=== PATIENT | female | born 1955 | race African-American/Black ===

== ENCOUNTER 2024-08-30 12:21 | Emergency (ER) | payer OTHER ==
[~2024-08-30] VITALS: Ht 172.7 cm; Wt 91.0 kg
[2024-08-30 12:25] VITALS: O2SAT 99
[2024-08-30 15:38] VITALS: BP 124/64; PULSE 72; RESP 14; TEMP 36.9; O2SAT 98
== END 2024-08-30 15:57 | disposition home or self-care (01) ==
LOC: ER 13:10
DX: T82.838A Hemorrhage due to vascular prosthetic devices, implants and grafts, initial encounter (principal); E78.00 Pure hypercholesterolemia, unspecified; N18.6 End stage renal disease; Z98.890 Other specified postprocedural states; Z95.0 Presence of cardiac pacemaker; Z99.2 Dependence on renal dialysis; Y92.89 Other specified places as the place of occurrence of the external cause
CPT/HCPCS: 99283; A4606